=== PATIENT | female | born 1980 | race Caucasian/White ===

== ENCOUNTER 2017-01-01 15:48 | Emergency (ER) | payer MEDICAID, OTHER ==
[2017-01-01 15:56] VITALS: BP 144/69; PULSE 78; RESP 18; TEMP 97.5; O2SAT 99
[2017-01-01] MEDS ORDERED: Naproxen 500 MG TAB PO STA (16:01)
--- NOTE | 2017-01-01 16:04 | ED PDOC ---
Lower Extremity Pain/Injury Time Seen by Provider: 01/01/17 15:55 Chief Complaint (Nursing): Lower Extremity Problem/Injury Chief Complaint (Provider): Left knee pain History Per: Patient History/Exam Limitations: no limitations Onset/Duration Of Symptoms: Days (2) Current Symptoms Are (Timing): Still Present Additional Complaint(s): Patient is a 36 y/o female with a past medical history of hypertension presenting to the emergency department for left knee pain following a fall yesterday. Reports that she fell sideways on the sidewalk and twisted her left knee. Reports difficulty walking and notes swelling. Of note, patient has had prior surgery to her left knee. Denies any other complaints. PCP: Dr. Garcia Past Medical History Reviewed: Historical Data, Nursing Documentation, Vital Signs Vital Signs: Last Vital Signs Temp 97.5 F L 01/01/17 15:53 Pulse 78 01/01/17 15:53 Resp 18 01/01/17 15:53 BP 144/69 01/01/17 15:53 Pulse Ox 99 01/01/17 15:53 - Medical History PMH: HTN - Surgical History Other surgeries: Left knee surgery, right foot surgery - Family History Family History: States: Unknown Family Hx - Immunization History Hx Tetanus Toxoid Vaccination: Yes Hx Influenza Vaccination: Yes Hx Pneumococcal Vaccination: No - Home Medications Home Medications: Ambulatory Orders Medication Instructions Recorded Ibuprofen [Motrin] 1 tab PO TID PRN #30 tab 04/19/15 Naproxen 375 mg PO BID 04/19/15 Naproxen 1 tab PO Q12 PRN #14 tab 01/01/17 - Allergies Allergies/Adverse Reactions: Allergies Allergy/AdvReac Type Severity Reaction Status Date / Time morphine Allergy RASH Verified 04/19/15 13:52 Penicillins Allergy RASH Verified 04/19/15 13:52 Review of Systems ROS Statement: Except As Marked, All Systems Reviewed And Found Negative Musculoskeletal: Positive for: Other (Left knee pain and swelling) Physical Exam - Reviewed Nursing Documentation Reviewed: Yes Vital Signs Reviewed: Yes - Physical Exam Appears: Positive for: Well, Non-toxic, No Acute Distress Head Exam: Positive for: ATRAUMATIC, NORMAL INSPECTION, NORMOCEPHALIC Skin: Positive for: Normal Color, Warm, Dry Eye Exam: Positive for: Normal appearance Neck: Positive for: Normal Cardiovascular/Chest: Positive for: Regular Rate, Rhythm Respiratory: Negative for: Accessory Muscle Use, Respiratory Distress Extremity: Positive for: Normal ROM (able to flex and extend left knee), Swelling (mild effusion noted to left anterior patella) Neurologic/Psych: Positive for: Alert, Oriented (x3) - ECG O2 Sat by Pulse Oximetry: 99 (RA) Pulse Ox Interpretation: Normal - Progress ED Course And Treament: xry of knee: no acute fx. Mild effusion noted d/w patient Placed in Knee immobilizer and crutches Medical Decision Making Medical Decision Making: Time: 16:00 Initial impression: Left knee pain Initial plan: Left knee x-ray Naproxen 500 mg PO ~ Scribe Attestation: Documented by Zelda Julien, acting as a scribe for JOSE Bess. Provider Scribe Attestation: All medical record entries made by the Scribe were at my direction and personally dictated by me. I have reviewed the chart and agree that the record accurately reflects my personal performance of the history, physical exam, medical decision making, and the department course for this patient. I have also personally directed, reviewed, and agree with the discharge instructions and disposition. Disposition - Clinical Impression Clinical Impression: Knee injury - Patient ED Disposition Is Patient to be Admitted: No - Disposition Referrals: Harlan Melendez III, MD [Staff Provider] - Disposition: Routine/Home Disposition Time: 17:04 Condition: STABLE Prescriptions: Naproxen 1 tab PO Q12 PRN #14 tab PRN Reason: Pain, Moderate (4-7) Instructions: Knee Sprain (ED) Forms: [email or web address] ([place])
[2017-01-01] MEDS ORDERED: Naproxen 500 MG TAB PO ONE (16:07)
--- NOTE | 2017-01-01 17:28 | RAD ---
PROCEDURE: Left Knee Radiographs. HISTORY: Posttraumatic pain COMPARISON: 03/14/2013 plain film radiographs of the left knee. 05/16/2012 CT of the left kidney. FINDINGS: BONES: Sclerotic focus at the site of prior surgery in the medial femoral condylar region. Secondary degenerative changes primarily Proliferative hypertrophic changes emanating from the femoral condyle and tibial plateau JOINTS: Degenerative changes affecting the patellofemoral joint to greater degree than the medial compartment. JOINT EFFUSION: None. OTHER FINDINGS: None. IMPRESSION: No acute findings related to/accounting for the clinical presentation. Additional benign and/or incidental findings described above.
== END 2017-01-01 17:17 | disposition home or self-care (01) ==
LOC: H.ER 15:48
DX: S89.92XA Unspecified injury of left lower leg, initial encounter (principal); W19.XXXA Unspecified fall, initial encounter; Y92.89 Other specified places as the place of occurrence of the external cause; I10 Essential (primary) hypertension; Z88.0 Allergy status to penicillin